=== PATIENT | male | born 1955 | race Caucasian/White ===

== ENCOUNTER 2018-01-24 14:19 | Emergency (ER) | payer BC ==
[2018-01-24 14:34] VITALS: BP 134/88
--- NOTE | 2018-01-24 15:35 | UC ---
Upper Extremity HPI - HPI Summary HPI Summary: 62 y/o male presents to the urgent care c/o Rt wrist and forearm pain, swelling and redness s/p twisting his RT forearm while braking a cardboard 2 days ago. Pt reports he had a mild cut in the lateral side of his wrist and he thinks is getting infected and this is why his wrist is red today. Pain is 5/10 w/ bending of his wrist. Pt denies numbness and tingling sensation over the rt hand , fever, SOB, chest pain,abdominal pain, N/V/D. - History of Current Complaint Hx Obtained From: Patient Onset/Duration: Sudden Onset, Lasting Days - 2 days, Still Present, Worse Since - today Severity Initially: Moderate Severity Currently: Moderate Pain Intensity: 5 Pain Scale Used: 0-10 Numeric Location Of Pain: Is Discrete @ - RT wrist and Rt forearm Character: Dull Aggravating Factor(s): Movement, Lifting, Flexion, Extension Alleviating Factor(s): OTC Meds, Rest Associated Signs And Symptoms: Positive: Swelling, Redness. Negative: Bruising , Fever, Numbness/Tingling Related History: Dominant Hand Right - Risk Factors Non-Orthopedic Risk Factor: Negative DVT Risk Factors: Negative Septic Arthritis Risk Factor: Negative <Julia Street - Last Filed: 01/26/18 00:34> <Leydi Bond - Last Filed: 01/26/18 08:13> - History of Current Complaint Chief Complaint: UCUpperExtremity Stated Complaint: ARM INJURY Time Seen by Provider: 01/24/18 15:33 - Allergies/Home Medications Allergies/Adverse Reactions: Allergies Allergy/AdvReac Type Severity Reaction Status Date / Time MS Horse-derived Products Allergy Intermediate Unknown Verified 03/13/13 19:37 [Horse-derived Products] Reaction Details diazepam Allergy Unknown Verified 01/24/18 14:35 Reaction Details tramadol Allergy Unknown Verified 01/24/18 14:36 Reaction Details Home Medications: Home Medications Zolpidem Tartrate [Ambien] 01/24/18 [History] PMH/Surg Hx/FS Hx/Imm Hx Previously Healthy: Yes Other Endocrine History: [place] Cardiovascular History: Hypertension - Surgical History Surgical History: Yes Surgery Procedure, Year, and Place: LEFT FOOT 2X LAST SURGERY WAS IN 2009 - Family History Known Family History: Positive: Cardiac Disease - Social History Occupation: Employed Full-time Lives: With Family Alcohol Use: Daily Substance Use Type: None Smoking Status (MU): Smoker, Current Status Unknown - Immunization History Most Recent Influenza Vaccination: UNKNOWN Most Recent Tetanus Shot: UNKNOWN <Ventura-AguilarJulia - Last Filed: 01/26/18 00:34> Review of Systems Constitutional: Negative Skin: Rash - RT wrist Eyes: Negative ENT: Negative Respiratory: Negative Cardiovascular: Negative Gastrointestinal: Negative Genitourinary: Negative Motor: Negative Neurovascular: Negative Musculoskeletal: Decreased ROM - RT wrist and Rt forearm, Other: - RT wrist and forearm pain s/p injury Neurological: Negative Psychological: Negative Is Patient Immunocompromised?: No All Other Systems Reviewed And Are Negative: Yes <YeniferJulia - Last Filed: 01/26/18 00:34> Physical Exam - Summary Physical Exam Summary: Vital Signs Reviewed: Yes General: well developed, well nourished male sitting in the examining table w/o any apparent distress. Eyes: Positive: Conjunctiva Clear - PERRLA, EOMI ENT: Positive: Normal ENT inspection, Hearing grossly normal, Pharynx normal, TMs normal Neck: Positive: Supple, Nontender, No Lymphadenopathy Respiratory: Positive: Chest nontender, Lungs clear, Normal breath sounds Cardiovascular: Positive: RRR, No Murmur, Pulses Normal Abdomen Description: Positive: Nontender, No Organomegaly, Soft. Negative: CVA Tenderness (R), CVA Tenderness (L) Bowel Sounds: Positive: Present Musculoskeletal:: Positive: Wrist: the R wrist is without obvious asymmetry or deformity when compared to the L wrist. discrete abrasion on the ulnar side of wrist w/ sorrounding erythema w/ indistinct borders, mild soft tissue swelling , no obvious deformity. . No bony crepitus. Point tenderness over the thenar eminence and ventral side of wrist. No scaphoid fullness or tenderness to direct palpation or axial load. Decreased ROM due to pain. Motor/sensory function of ulnar, radial, median nerves intact. Ulnar and radial pulses intact. Neurological Exam: Normal Psychological Exam: Normal Skin: Positive: rashes - RT ventral side of Rt forearm w/ erythematous patch w/ indistinct borders, warm to touch, swelling and tender to palpation. Triage Information Reviewed: Yes Vital Signs: Initial Vital Signs Temp 98.5 F 01/24/18 14:27 Pulse 57 01/24/18 14:27 Resp 18 01/24/18 14:27 BP 134/88 01/24/18 14:27 Pulse Ox 97 01/24/18 14:27 <[address] - Last Filed: 01/26/18 00:34> Vital Signs: Initial Vital Signs Temp 98.5 F 01/24/18 14:27 Pulse 57 01/24/18 14:27 Resp 18 01/24/18 14:27 BP 134/88 01/24/18 14:27 Pulse Ox 97 01/24/18 14:27 <Leydi Bond - Last Filed: 01/26/18 08:13> Upper Extremity Course/Dx - Course Course Of Treatment: 62 y/o male presents to the urgent care c/o Rt wrist and forearm pain, swelling and redness s/p twisting his RT forearm while braking a cardboard. Pt reports he had a mild cut in the lateral side of his wrist and he thinks is getting infected and this is why his wrist is red today. Pain is 5/ 10 w/ bending of his wrist. Pt denies numbness and tingling sensation over the rt hand, fever, SOB, chest pain,abdominal pain, N/V/D.Hx obtained.Pt given tylenol PO for pain.RT wrist and forearm X-ray ordered. Impression: There was no fracture, dislocation, soft tissue swelling or FB noted. Pts wrist immobilized with a cock-up. Advised RICE: Rest, Ice, elevation, NSAIDs, analgesia. There was no neurovascular compromise after splint application; the splint was in good alignment and the pt had good sensation and capillary refill at the time of discharge. Pt also Rx Keflex Po for cellulitis and advised to go immediately to the ER if rash doubles in size despite taking ABx. Or f/u w/ Orthopedic Dr Rodriguez if not improvement of symptoms. D/C instructions explained. Pt understood and agreed w/ plan of care. Pt left the clinic hemodynamically stable. - Differential Dx/Diagnosis Differential Diagnosis/HQI/PQRI: Fracture (Closed), Strain, Sprain, Other - cellulitis Provider Diagnoses: 1- RT wrist and forearm pain s/p injury. 2- Rt forearm cellulitis <Kristopher Streetha - Last Filed: 01/26/18 00:34> Discharge - Sign-Out/Discharge Documenting (check all that apply): Discharge/Admit/Transfer - D/C home - Billing Disposition and Condition Condition: STABLE Disposition: Home <VenturaChristieAguilarKristopher nielsonha - Last Filed: 01/26/18 00:34> - Billing Disposition and Condition Condition: STABLE Disposition: Home <Leydi Bond - Last Filed: 01/26/18 08:13> - Discharge Plan Condition: Stable Disposition: HOME Prescriptions: Acetaminophen TAB* [Tylenol TAB*] 650 mg PO Q6H PRN #30 tab PRN Reason: Pain Cephalexin CAP* [Keflex CAP*] 500 mg PO QID #28 cap Patient Education Materials: Cellulitis (ED), Wrist Sprain (ED) Referrals: Fredrick Gamez MD [Primary Care Provider] - 1 Week Kerri Rodriguez MD [Medical Doctor] - 1 Week Additional Instructions: 1-Please take full course of Antibiotic. Take Tylenol PO as directed to alleviate pain and swelling 2- If redness and swelling doubles in size after 48 hrs of taking antibiotic and fever develops please go to the ER immediately. 3- Keep your wrist immobilized w/ the splint.Avoid flexing your wrist or heavy lifting. 4-Please F/u with your PCP or Orthopedic DR Rodriguez in 1 week if not improvement of symptoms for further evaluation and treatment. Attestation Statement User Type: Provider - I was available for consult. This patient was seen by the YOLANDA. The patient was not presented to, seen by, or examined by me. -Nathalia <Leydi Bond - Last Filed: 01/26/18 08:13>
[2018-01-24] MEDS ORDERED: Acetaminophen TAB* 325 MG PO ONE (15:55)
--- NOTE | 2018-01-24 16:15 | RAD ---
INDICATION: Right wrist injury. TECHNIQUE: 3 views of the right wrist were obtained. FINDINGS: There is dorsal soft tissue swelling The bones are in normal alignment. No fracture is seen. Joint spaces appear maintained. IMPRESSION: NO EVIDENCE FOR FRACTURE, IF THE PATIENT'S SYMPTOMS PERSIST RECOMMEND FOLLOW-UP IMAGING.
--- NOTE | 2018-01-24 16:16 | RAD ---
INDICATION: Right forearm injury. TECHNIQUE: 2 views of the right forearm were obtained. FINDINGS: The bones are in normal alignment. No fracture is seen. IMPRESSION: NO EVIDENCE FOR FRACTURE.
== END 2018-01-24 16:40 | disposition home or self-care (01) ==
LOC: UCEAST 14:19
DX: S63.501A Unspecified sprain of right wrist, initial encounter (principal); X50.1XXA Overexertion from prolonged static or awkward postures, initial encounter; Y93.89 Activity, other specified; Y92.9 Unspecified place or not applicable; L03.113 Cellulitis of right upper limb; Z88.5 Allergy status to narcotic agent; Z88.8 Allergy status to other drugs, medicaments and biological substances; Z72.0 Tobacco use
CPT/HCPCS: 99212; A9270-GY; G0463

== ENCOUNTER 2021-11-07 10:53 | Inpatient (IN) ==
[2021-11-07 12:10] LABS: Albumin 4.5 g/dL (3.2-5.2); Calcium 9.2 mg/dL (8.6-10.3); Globulin 2.3 g/dL (2-4); Magnesium 1.9 mg/dL (1.9-2.7); Potassium 4.1 mmol/L (3.5-5.0); Total Bilirubin 0.7 mg/dL (0.2-1.0); Total Protein 6.8 g/dL (6.4-8.9); eGFR CKD-EPI 72.5 (>60)
[2021-11-07] MEDS ORDERED: Albuterol HFA INHALER 8 gm MDI INH PRN (12:22)
[2021-11-07 14:04] LABS: Hematocrit 49 % (42-52); Hemoglobin 16.3 g/dL (14.0-18.0); Mean Corpuscular HGB Conc 34 g/dL (31-36); Mean Corpuscular Hemoglobin 31 pg (27-31); Mean Corpuscular Volume 91 fL (80-94); Mean Platelet Volume 7.8 fL (7.4-10.4); Platelet Count 232 10^3/uL (150-450); Red Blood Count 5.33 10^6 /uL (4.18-5.48); Red Cell Distribution Width 14 % (10-15); White Blood Count 6.7 10^3/uL (3.5-10.8)
[2021-11-07] MEDS: Mometasone 220 MCG MDI INH SCH (21:43)
[2021-11-08 09:05] LABS: High Sensitivity Troponin 1 Hr 5 pg/mL (<20)
[2021-11-08] MEDS: SPIRIVA Respimat (tiotropium) 2.5 mcg/inh Inhaler INH SCH (09:29)
[2021-11-08] MEDS ORDERED: Iohexol 350 (CONTRAST) 500 ML MDV IV ONE (11:02)
[2021-11-08] MEDS: Mometasone 220 MCG MDI INH SCH (20:40)
[2021-11-09] MEDS: SPIRIVA Respimat (tiotropium) 2.5 mcg/inh Inhaler INH SCH (09:09)
[2021-11-09 11:46] VITALS: BP 133/89
== END 2021-11-09 16:48 | disposition home or self-care (01) | DRG 201 ==
LOC: CHICATH 10:53 → MEDTELE 13:10
PROVIDERS: ADMIT Specialist; ATTEND Specialist

== ENCOUNTER 2023-09-10 22:27 | Observation (INO) ==
[2023-09-10] MEDS: Morphine 4 MG/ML VIAL (1 ml) IV ONE (23:04)
[2023-09-10 23:19] LABS: ABS Basophils 0.1 10^3/uL (0.0-0.1); ABS Eosinophils 0.2 10^3/uL (0.0-0.5); ABS Lymphocytes 0.9 10^3/uL (1.0-4.8); ABS Monocytes 1.1 10^3/uL (0.0-1.1); ABS Neutrophils 7.5 10^3/uL (1.5-7.6); Eosinophil % 1.9 %; Hematocrit 39.9 % (38-53); Hemoglobin 13.8 g/dL (13.2-16.3); Lymphocyte % 9.4 %; Mean Corpuscular Hemoglobin 31.7 pg (27-33); Mean Corpuscular Hgb Conc 34.6 g/dL (31-36); Mean Corpuscular Volume 91.6 fL (80-97); Mean Platelet Volume 7.3 fL (7.5-11.2); Platelet Count 154 10^3/uL (150-450); Red Blood Count 4.35 10^6/uL (4.06-5.63); Red Cell Distribution Width 14.3 % (12-17); White Blood Count 9.8 10^3/uL (3.6-10.2)
[2023-09-10 23:26] LABS: INR 1.59 (0.83-1.13)
[2023-09-10 23:38] LABS: Albumin 3.7 g/dL (3.2-5.2); Albumin/Globulin Ratio 1.6 (1-3); Calcium 8.5 mg/dL (8.6-10.3); Creatinine, Serum 0.81 mg/dL (0.67-1.17); Globulin 2.3 g/dL (2-4); Total Bilirubin 0.9 mg/dL (0.2-1.0); eGFR CKD-EPI 96.6 (>60)
[2023-09-11] MEDS: Iohexol 350 (CONTRAST) 500 ML MDV IV ONE (00:17)
[2023-09-11] MEDS: Morphine 4 MG/ML VIAL (1 ml) IV ONE (00:55)
[2023-09-11 00:58] LABS: High Sensitivity Troponin 1 Hr 759 pg/mL (<20)
[2023-09-11 06:55] LABS: C Reactive Protein 79.04 mg/L (<8.01)
[2023-09-11 07:44] LABS: Anion Gap 8 mmol/L (2-16); Blood Urea Nitrogen 17 mg/dL (6-24); CO2 Carbon Dioxide 26 mmol/L (22-32); Calcium 8.5 mg/dL (8.6-10.3); Chloride 102 mmol/L (101-111); Glucose 155 mg/dL (70-100); Potassium 4.5 mmol/L (3.5-5.0); Sodium 136 mmol/L (135-145)
[2023-09-11] MEDS: Vitamin THERAPEUTIC TAB PO SCH (08:13)
[2023-09-11] MEDS: DULoxetine DR 30 mg CAP PO SCH (08:14)
[2023-09-11 09:31] LABS: Erythrocyte Sed Rate 8 mm/Hr (0-19)
[2023-09-11] MEDS: Albuterol/Ipratropium NEB.SOL (2.5/0.5 MG) 3 ML NEB.SOLN INH PRN (10:16)
[2023-09-11 10:40] LABS: CRP High Sensitivity > 80.00 mg/L (<2.00)
[2023-09-11] MEDS: Albuterol HFA INHALER 8 gm MDI INH PRN (20:23)
[2023-09-12 07:03] LABS: ABS Eosinophils 0.2 10^3/uL (0.0-0.5); ABS Lymphocytes 0.9 10^3/uL (1.0-4.8); ABS Monocytes 0.9 10^3/uL (0.0-1.1); ABS Neutrophils 4.4 10^3/uL (1.5-7.6); ABS Nucleated RBC 0.01 10^3/ul; Eosinophil % 2.9 %; Hemoglobin 12.9 g/dL (13.2-16.3); Lymphocyte % 13.9 %; Mean Corpuscular Hemoglobin 31.3 pg (27-33); Mean Corpuscular Hgb Conc 33.9 g/dL (31-36); Mean Corpuscular Volume 92.4 fL (80-97); Mean Platelet Volume 7.9 fL (7.5-11.2); Nucleated Red Blood Cells % 0.1 %/100WBC (0.0-0.8); Platelet Count 157 10^3/uL (150-450); Red Blood Count 4.11 10^6/uL (4.06-5.63); Red Cell Distribution Width 14.3 % (12-17); White Blood Count 6.3 10^3/uL (3.6-10.2)
[2023-09-12 07:27] LABS: Calcium 8.4 mg/dL (8.6-10.3); Creatinine, Serum 0.85 mg/dL (0.67-1.17); Magnesium 1.9 mg/dL (1.9-2.7); Potassium 4.2 mmol/L (3.5-5.0); eGFR CKD-EPI 95.2 (>60)
[2023-09-13 09:56] LABS: ABS Eosinophils 0.2 10^3/uL (0.0-0.5); ABS Lymphocytes 0.8 10^3/uL (1.0-4.8); ABS Monocytes 0.5 10^3/uL (0.0-1.1); ABS Neutrophils 3.2 10^3/uL (1.5-7.6); Eosinophil % 3.8 %; Hematocrit 37.2 % (38-53); Hemoglobin 12.5 g/dL (13.2-16.3); Lymphocyte % 17.4 %; Mean Corpuscular Hemoglobin 31.2 pg (27-33); Mean Corpuscular Hgb Conc 33.7 g/dL (31-36); Mean Corpuscular Volume 92.5 fL (80-97); Platelet Count 180 10^3/uL (150-450); Red Blood Count 4.02 10^6/uL (4.06-5.63); Red Cell Distribution Width 14.2 % (12-17); White Blood Count 4.8 10^3/uL (3.6-10.2)
[2023-09-13 10:13] LABS: Albumin 3.4 g/dL (3.2-5.2); Albumin/Globulin Ratio 1.4 (1-3); C Reactive Protein 155.99 mg/L (<8.01); Calcium 8.5 mg/dL (8.6-10.3); Creatinine, Serum 0.81 mg/dL (0.67-1.17); Globulin 2.5 g/dL (2-4); Magnesium 1.9 mg/dL (1.9-2.7); Potassium 3.9 mmol/L (3.5-5.0); Total Bilirubin 0.8 mg/dL (0.2-1.0); Total Protein 5.9 g/dL (6.4-8.9); eGFR CKD-EPI 96.6 (>60)
[2023-09-13 15:09] VITALS: BP 138/86
== END 2023-09-13 15:45 | disposition home or self-care (01) ==
LOC: EDHOLD 22:27 → ED 22:27 → SUATTDRO 09-11 02:02 → MEDTELE 09-11 03:38
PROVIDERS: ADMIT Internal Medicine; ATTEND Internal Medicine

== ENCOUNTER 2023-09-16 13:05 | Inpatient (IN) ==
[2023-09-16 13:34] LABS: ABS Basophils 0.1 10^3/uL (0.0-0.1); ABS Eosinophils 0.3 10^3/uL (0.0-0.5); ABS Lymphocytes 1.3 10^3/uL (1.0-4.8); ABS Monocytes 0.6 10^3/uL (0.0-1.1); ABS Nucleated RBC 0.01 10^3/ul; Eosinophil % 4.8 %; Hematocrit 40.9 % (38-53); Hemoglobin 13.8 g/dL (13.2-16.3); Mean Corpuscular Hemoglobin 30.9 pg (27-33); Mean Corpuscular Hgb Conc 33.8 g/dL (31-36); Mean Corpuscular Volume 91.3 fL (80-97); Mean Platelet Volume 6.5 fL (7.5-11.2); Nucleated Red Blood Cells % 0.2 %/100WBC (0.0-0.8); Platelet Count 249 10^3/uL (150-450); Red Blood Count 4.48 10^6/uL (4.06-5.63); Red Cell Distribution Width 13.7 % (12-17); White Blood Count 6.3 10^3/uL (3.6-10.2)
[2023-09-16 13:52] LABS: INR 2.09 (0.83-1.13)
[2023-09-16 13:53] LABS: Albumin 3.8 g/dL (3.2-5.2); Albumin/Globulin Ratio 1.4 (1-3); Calcium 9.3 mg/dL (8.6-10.3); Creatinine, Serum 0.94 mg/dL (0.67-1.17); Globulin 2.8 g/dL (2-4); Potassium 4.7 mmol/L (3.5-5.0); Total Bilirubin 0.5 mg/dL (0.2-1.0); Total Protein 6.6 g/dL (6.4-8.9); eGFR CKD-EPI 88.9 (>60)
[2023-09-16] MEDS: Morphine 4 MG/ML VIAL (1 ml) IV ONE (15:02)
[2023-09-16 15:08] LABS: High Sensitivity Troponin 1 Hr 100 pg/mL (<20)
[2023-09-16] MEDS ORDERED: HYDROcodone/ACETAMIN 5/325 mg TAB PO PRN (17:00)
[2023-09-16] MEDS: Morphine 2 MG/ML SYRINGE IV ONE (17:03)
[2023-09-16] MEDS: methylPREDNISolone SOD SUCC 125 mg 2 ML VIAL IV SCH (17:30)
[2023-09-16] MEDS: hydrALAZINE 20 mg/ml 1 ML Vial IV IV SLOW PU ONE (18:30)
[2023-09-16 18:31] LABS: Magnesium 2.1 mg/dL (1.9-2.7); Phosphorus 4.3 mg/dL (2.5-5.0)
[2023-09-16] MEDS: Albuterol HFA INHALER 8 gm MDI INH ONE (19:35)
[2023-09-16] MEDS: Morphine 2 MG/ML SYRINGE IV PRN (19:55)
[2023-09-16] MEDS: HYDROcodone/ACETAMIN 5/325 mg TAB PO PRN (21:28)
[2023-09-16] MEDS: Albuterol HFA INHALER 8 gm MDI INH PRN (21:30)
[2023-09-16] MEDS: HYDROmorphone 1 MG/1 ML SYRINGE IV SLOW PU PRN (22:40)
[2023-09-17] MEDS: DULoxetine DR 30 mg CAP PO SCH (09:26)
[2023-09-17] MEDS: Albuterol HFA INHALER 8 gm MDI INH PRN (11:40)
[2023-09-17] MEDS: Albuterol/Ipratropium NEB.SOL (2.5/0.5 MG) 3 ML NEB.SOLN INH SCH ×2 (15:11→19:34)
[2023-09-17] MEDS: Mometasone/Formoter 100/5 MDI INH SCH (19:34)
[2023-09-18] MEDS: HYDROmorphone 1 MG/1 ML SYRINGE IV ONE (15:46)
[2023-09-18] MEDS: Lidocaine PATCH 5% PATCH TRANSDERM SCH (15:56)
[2023-09-18 15:57] LABS: High Sensitivity Troponin 3 Hr 43 pg/mL (<20)
[2023-09-18] MEDS: methylPREDNISolone SOD SUCC 40 mg/ml 1 ml VIAL IV ONE (15:57)
[2023-09-18] MEDS: HYDROmorphone 1 MG/1 ML SYRINGE IV SLOW PU PRN (18:29)
[2023-09-18] MEDS: Albuterol/Ipratropium NEB.SOL (2.5/0.5 MG) 3 ML NEB.SOLN INH SCH (19:16)
[2023-09-19] MEDS: methylPREDNISolone SOD SUCC 125 mg 2 ML VIAL IV SCH (09:02)
[2023-09-20] MEDS ORDERED: HYDROmorphone 1 MG/1 ML SYRINGE IV SLOW PU PRN (09:00)
[2023-09-20 18:31] LABS: Calcium 9.5 mg/dL (8.6-10.3); Creatinine, Serum 0.86 mg/dL (0.67-1.17); eGFR CKD-EPI 94.9 (>60)
[2023-09-20 19:27] LABS: High Sensitivity Troponin 1 Hr 28 pg/mL (<20)
[2023-09-20] MEDS: Metoprolol Tartrate 5 mg VIAL 5 ml VIAL (1 mg/ml) IV ONE (20:50)
[2023-09-20] MEDS: Metoprolol Tartrate 5 mg VIAL 5 ml VIAL (1 mg/ml) ONE (20:55)
[2023-09-20 21:58] LABS: C Reactive Protein 12.24 mg/L (<8.01)
[2023-09-20 22:56] LABS: High Sensitivity Troponin 1 Hr 29 pg/mL (<20)
[2023-09-21] MEDS: fentaNYL 100 mcg/2 ml 50 MCG/ML VIAL IV SLOW PU ONE (04:52)
[2023-09-21] MEDS ORDERED: Propafenone ER 225 mg CAP (NF) 225 MG CAP.ER PO SCH (10:00)
[2023-09-21 13:48] VITALS: BP 141/99
== END 2023-09-21 18:03 | disposition home or self-care (01) | DRG 315 ==
LOC: ED 13:05 → EDHOLD 13:05 → SUATTDRO 16:27 → MEDTELE 17:02
PROVIDERS: ADMIT Internal Medicine; ATTEND Internal Medicine

== ENCOUNTER 2024-07-06 15:02 | Observation (INO) ==
[2024-07-06 15:43] LABS: ABS Eosinophils 0.2 10^3/uL (0.0-0.5); ABS Lymphocytes 1.8 10^3/uL (1.0-4.8); ABS Monocytes 0.5 10^3/uL (0.0-1.1); ABS Neutrophils 5.4 10^3/uL (1.5-7.6); ABS Nucleated RBC 0.02 10^3/ul; Eosinophil % 2.4 %; Hematocrit 53.5 % (38-53); Hemoglobin 18.3 g/dL (13.2-16.3); Lymphocyte % 22.9 %; Mean Corpuscular Hemoglobin 32.4 pg (27-33); Mean Corpuscular Hgb Conc 34.2 g/dL (31-36); Mean Corpuscular Volume 94.6 fL (80-97); Mean Platelet Volume 7.7 fL (7.5-11.2); Nucleated Red Blood Cells % 0.3 %/100WBC (0.0-0.8); Platelet Count 209 10^3/uL (150-450); Red Blood Count 5.65 10^6/uL (4.06-5.63); Red Cell Distribution Width 14.4 % (12-17)
[2024-07-06 16:17] LABS: INR 1.34 (0.85-1.14)
[2024-07-06 16:27] LABS: Albumin 4.6 g/dL (3.2-5.2); Albumin/Globulin Ratio 2.4 (1-3); Calcium 9.5 mg/dL (8.6-10.3); Creatinine, Serum 1.2 mg/dL (0.67-1.17); Globulin 1.9 g/dL (2-4); Potassium 4.1 mmol/L (3.5-5.0); Total Bilirubin 0.9 mg/dL (0.2-1.0); Total Protein 6.5 g/dL (6.4-8.9); eGFR CKD-EPI 65.9 (>60)
[2024-07-06] MEDS ORDERED: Ondansetron ODT 4 mg TAB 4 MG TAB PO PRN (17:28)
[2024-07-06 17:43] LABS: High Sensitivity Troponin 1 Hr 4 pg/mL (<20)
[2024-07-06 17:44] LABS: C Reactive Protein 2.65 mg/L (<8.01); Magnesium 2.1 mg/dL (1.9-2.7)
[2024-07-06] MEDS ORDERED: Nitroglycerin 0.3 mg TAB SL PRN (18:28)
[2024-07-06 20:16] LABS: Erythrocyte Sed Rate 0 mm/Hr (0-19)
[2024-07-06] MEDS ORDERED: Albuterol HFA INHALER 8 gm MDI INH PRN (20:31)
[2024-07-06] MEDS ORDERED: Albuterol HFA INHALER 8 gm MDI INH SCH (21:00)
[2024-07-07 06:32] LABS: ABS Basophils 0.1 10^3/uL (0.0-0.1); ABS Eosinophils 0.3 10^3/uL (0.0-0.5); ABS Lymphocytes 2.1 10^3/uL (1.0-4.8); ABS Monocytes 0.5 10^3/uL (0.0-1.1); ABS Neutrophils 3.7 10^3/uL (1.5-7.6); ABS Nucleated RBC 0.02 10^3/ul; Eosinophil % 4.1 %; Hematocrit 54.1 % (38-53); Hemoglobin 18.4 g/dL (13.2-16.3); Lymphocyte % 31.4 %; Mean Corpuscular Hemoglobin 32.3 pg (27-33); Mean Platelet Volume 7.8 fL (7.5-11.2); Nucleated Red Blood Cells % 0.3 %/100WBC (0.0-0.8); Platelet Count 194 10^3/uL (150-450); Red Blood Count 5.69 10^6/uL (4.06-5.63); Red Cell Distribution Width 14.2 % (12-17); White Blood Count 6.7 10^3/uL (3.6-10.2)
[2024-07-07 06:46] LABS: Calcium 8.9 mg/dL (8.6-10.3); Creatinine, Serum 1.25 mg/dL (0.67-1.17); Magnesium 2.2 mg/dL (1.9-2.7); Potassium 4.3 mmol/L (3.5-5.0); eGFR CKD-EPI 62.7 (>60)
[2024-07-07] MEDS: CMC:FLUTICAS/UMECLI/VILANT 100-62.5-25 MDI (NF) INH SCH (07:52)
[2024-07-07 09:09] VITALS: BP 143/101
[2024-07-07] MEDS: DULoxetine DR 30 mg CAP PO SCH (09:10)
[2024-07-07] MEDS: Sulfur Hexaflouride MICROSPHR 25 MG VIAL IV PRN (10:09)
== END 2024-07-07 14:03 | disposition home or self-care (01) ==
LOC: ED 15:02 → EDHOLD 15:02 → SUATTDRO 17:24 → MED 22:24
PROVIDERS: ADMIT Student in an Organized Health Care Education/Training Program; ATTEND Internal Medicine